=== PATIENT | male | born 1980 | race Hispanic/Latino ===

== ENCOUNTER 2023-02-06 11:38 | Inpatient (IN) | payer BC, MEDICAID ==
[~2023-02-06] VITALS: Ht 180.3 cm; Wt 151.4 kg
[2023-02-06] MEDS ORDERED: VANCOMYCIN 1G/250ML KIT 250 ML IV ONE (12:51)
[2023-02-06 13:00] LABS: BASOPHILS % (AUTO) 0.4 % (0.0-5.0); EOSINOPHILS % (AUTO) 0.8 % (0.0-8.0); HEMATOCRIT 41.6 % (42-54); LYMPHOCYTES % (AUTO) 22.8 % (21.0-51.0); MEAN CORPUSCULAR HEMOGLOBIN 28.9 pg (27.0-33.0); MEAN CORPUSCULAR HGB CONC 33.7 g/dL (32.0-36.0); MONOCYTES % (AUTO) 6.9 % (3.0-13.0); NEUTROPHILS % (AUTO) 68.4 % (40.0-77.0); PLATELET COUNT (AUTO) 242 K/uL (130-400); RED BLOOD CELL COUNT(AUTO) 4.84 MIL/uL (4.50-6.20); RED CELL DISTRIBUTION WIDTH 13.3 % (11.0-15.5); WHITE BLOOD COUNT (AUTO) 12.5 K/uL (4.8-10.8)
[2023-02-06] MEDS ORDERED: MORPHINE 4 MG SYG IVP ONE (13:00)
[2023-02-06] MEDS ORDERED: VANCOMYCIN KIT 1 GM/250 ML IV.KIT IV ONE (13:00)
[2023-02-06] MEDS ORDERED: ONDANSETRON 4MG INJ IVP ONE (13:00)
[2023-02-06 13:24] LABS: ALBUMIN 2.8 g/dL (3.5-5.0); CREATININE 0.9 mg/dL (0.5-1.5); POTASSIUM 3.8 mmol/L (3.5-5.1); TOTAL PROTEIN, SERUM 7.2 g/dL (6.0-8.3)
[2023-02-06] MEDS ORDERED: INSULIN HUMULIN R 100 UNIT/ML 3ML IV ONE (14:30)
[2023-02-06] MEDS ORDERED: 0.9%NACL 1000ML 1,000 ML IV ONE ×2 (14:30→20:30)
[2023-02-06] MEDS ORDERED: IOHEXOL-350 75 ML VIAL IV ONE (14:46)
[2023-02-06] MEDS ORDERED: MORPHINE 2 MG SYG ONE (16:15)
[2023-02-06] MEDS ORDERED: MORPHINE 2 MG SYG IVP ONE (16:30)
[2023-02-06] MEDS: CEFTRIAXONE 2GM VIAL IVPB SCH (17:19)
[2023-02-06] MEDS ORDERED: VANCOMYCIN PROTOCOL PER PHARMACY IV SCH (17:30)
[2023-02-06 17:40] LABS: HEMOGLOBIN A1C 13.8 % (4.0-6.0)
[2023-02-06] MEDS: VANCOMYCIN 1.25 GM/250 ML BAG 250 ML IV SCH (17:42)
[2023-02-06 17:46] LABS: CRP QUANTITATIVE 151.5 mg/L (0.00-9.0); THYROID STIMULATING HORMONE 1.57 uIU/mL (0.36-3.74)
[2023-02-06 18:59] VITALS: BP 119/63
[2023-02-06] MEDS ORDERED: GLIM4TAB36 PO (19:27)
[2023-02-06] MEDS ORDERED: ATOR20TA65 PO (19:27)
[2023-02-06] MEDS ORDERED: LOSA1TAB54 PO (19:27)
[2023-02-06] MEDS ORDERED: METF-446 PO (19:27)
[2023-02-06] MEDS: INSULIN GLARGINE 100 UNITS/ML 10 ML VIAL SQ SCH (20:56)
[2023-02-06] MEDS ORDERED: INSULIN HUMULIN R 100 UNIT/ML 3ML SQ SCH (21:00)
[2023-02-06] MEDS ORDERED: INSULIN HUMULIN R 100 UNIT/ML 3ML SQ ONE (21:30)
[2023-02-06] MEDS ORDERED: HYDROCODONE/ACETAMINOPHEN 5/325 MG TAB PO PRN (23:00)
[2023-02-06] MEDS ORDERED: ACETAMINOPHEN 325 MG TAB PO PRN ×2 (23:00)
[2023-02-06 23:56] VITALS: BP 143/74
[2023-02-06] MEDS: HYDROCODONE/ACETAMINOPHEN 5/325 MG TAB PO PRN (23:56)
[2023-02-07] MEDS: VANCOMYCIN 1.25 GM/250 ML BAG 250 ML IV SCH ×2 (01:43→08:49)
[2023-02-07 04:00] VITALS: BP 138/73
[2023-02-07 04:43] LABS: BASOPHILS % (AUTO) 0.4 % (0.0-5.0); EOSINOPHILS % (AUTO) 1.6 % (0.0-8.0); HEMATOCRIT 41.3 % (42-54); LYMPHOCYTES % (AUTO) 36.1 % (21.0-51.0); MEAN CORPUSCULAR HEMOGLOBIN 28.6 pg (27.0-33.0); MEAN CORPUSCULAR HGB CONC 32.9 g/dL (32.0-36.0); MEAN CORPUSCULAR VOLUME 86.9 fL (79-99); MONOCYTES % (AUTO) 7.1 % (3.0-13.0); NEUTROPHILS % (AUTO) 53.8 % (40.0-77.0); PLATELET COUNT (AUTO) 251 K/uL (130-400); RED BLOOD CELL COUNT(AUTO) 4.75 MIL/uL (4.50-6.20); RED CELL DISTRIBUTION WIDTH 13.4 % (11.0-15.5); WHITE BLOOD COUNT (AUTO) 11.7 K/uL (4.8-10.8)
[2023-02-07 04:56] LABS: INR 0.94 (0.85-1.15); PROTHROMBIN TIME 10.9 SEC (9.6-11.6)
[2023-02-07 04:57] LABS: CREATININE 0.7 mg/dL (0.5-1.5); POTASSIUM 3.7 mmol/L (3.5-5.1)
[2023-02-07 04:58] LABS: PARTIAL THROMBOPLASTIN TIME 31.7 SEC (26.3-35.5)
[2023-02-07] MEDS: HYDROCODONE/ACETAMINOPHEN 5/325 MG TAB PO PRN ×4 (05:51→23:10)
[2023-02-07] MEDS: INSULIN HUMULIN R 100 UNIT/ML 3ML SQ SCH ×6 (06:09→22:10)
[2023-02-07 08:00] VITALS: BP 123/64
[2023-02-07 12:00] VITALS: BP 100/49
[2023-02-07] MEDS ORDERED: ONDANSETRON 4MG INJ IVP PRN (15:30)
[2023-02-07 16:00] VITALS: BP 126/72
[2023-02-07] MEDS: CEFTRIAXONE 2GM VIAL IVPB SCH (17:43)
[2023-02-07] MEDS: VANCOMYCIN 1.5 GM/250 ML BAG 250 ML IV SCH (18:43)
[2023-02-07 20:28] VITALS: BP 139/64
[2023-02-07] MEDS: INSULIN GLARGINE 100 UNITS/ML 10 ML VIAL SQ SCH (22:08)
[2023-02-08] VITALS (7 sets, daily range): BP systolic 138–153; BP diastolic 68–87
[2023-02-08] MEDS: VANCOMYCIN 1.5 GM/250 ML BAG 250 ML IV SCH ×3 (02:23→18:40)
[2023-02-08 04:44] LABS: HEMATOCRIT 40.7 % (42-54); MEAN CORPUSCULAR HEMOGLOBIN 28.7 pg (27.0-33.0); MEAN CORPUSCULAR HGB CONC 31.9 g/dL (32.0-36.0); MEAN CORPUSCULAR VOLUME 89.8 fL (79-99); RED BLOOD CELL COUNT(AUTO) 4.53 MIL/uL (4.50-6.20); RED CELL DISTRIBUTION WIDTH 13.4 % (11.0-15.5); WHITE BLOOD COUNT (AUTO) 8.7 K/uL (4.8-10.8)
[2023-02-08 05:08] LABS: ALBUMIN 2.3 g/dL (3.5-5.0); CREATININE 0.6 mg/dL (0.5-1.5); POTASSIUM 4.1 mmol/L (3.5-5.1); TOTAL PROTEIN, SERUM 6.6 g/dL (6.0-8.3)
[2023-02-08] MEDS: INSULIN HUMULIN R 100 UNIT/ML 3ML SQ SCH ×6 (06:57→20:42)
[2023-02-08] MEDS: LOSARTAN 50 MG TABLET PO SCH (08:38)
[2023-02-08] MEDS: HYDROCODONE/ACETAMINOPHEN 5/325 MG TAB PO PRN (08:39)
[2023-02-08] MEDS ORDERED: INSULIN GLARGINE 100 UNITS/ML 10 ML VIAL SQ SCH (09:00)
[2023-02-08] MEDS: CEFTRIAXONE 2GM VIAL IVPB SCH (16:56)
[2023-02-08] MEDS ORDERED: INSULIN HUMULIN R 100 UNIT/ML 3ML SQ SCH (17:00)
[2023-02-09] MEDS ORDERED: VANCOMYCIN 1.75 GM/250 ML BAG 250 ML IV SCH (02:30)
[2023-02-09 04:00] VITALS: BP 156/87
[2023-02-09 05:40] LABS: BASOPHILS % (AUTO) 0.5 % (0.0-5.0); HEMATOCRIT 38.8 % (42-54); MEAN CORPUSCULAR HEMOGLOBIN 28.6 pg (27.0-33.0); MEAN CORPUSCULAR HGB CONC 32.5 g/dL (32.0-36.0); MEAN CORPUSCULAR VOLUME 88.2 fL (79-99); MONOCYTES % (AUTO) 7.6 % (3.0-13.0); NEUTROPHILS % (AUTO) 44.9 % (40.0-77.0); PLATELET COUNT (AUTO) 248 K/uL (130-400); RED CELL DISTRIBUTION WIDTH 13.3 % (11.0-15.5); WHITE BLOOD COUNT (AUTO) 7.7 K/uL (4.8-10.8)
[2023-02-09 06:05] LABS: ALBUMIN 2.5 g/dL (3.5-5.0); CREATININE 0.7 mg/dL (0.5-1.5); MAGNESIUM 1.8 mg/dL (1.80-2.40); POTASSIUM 3.7 mmol/L (3.5-5.1); TOTAL PROTEIN, SERUM 6.5 g/dL (6.0-8.3)
[2023-02-09] MEDS: INSULIN HUMULIN R 100 UNIT/ML 3ML SQ SCH (06:34)
[2023-02-09] MEDS ORDERED: INSULIN HUMULIN R 100 UNIT/ML 3ML SQ SCH (07:30)
[2023-02-09 08:00] VITALS: BP 145/88
[2023-02-09] MEDS: LOSARTAN 50 MG TABLET PO SCH (08:35)
[2023-02-09] MEDS ORDERED: INSULIN GLARGINE 100 UNITS/ML 10 ML VIAL SQ SCH (09:00)
== END 2023-02-09 11:00 | disposition left against medical advice (07) | DRG 872 ==
LOC: EDH 11:38 → EDHIP 17:01 → 4CH 19:15
PROVIDERS: ADMIT Internal Medicine; ATTEND Internal Medicine
DX: A41.9 Sepsis, unspecified organism (principal); L03.116 Cellulitis of left lower limb; L02.416 Cutaneous abscess of left lower limb; E11.65 Type 2 diabetes mellitus with hyperglycemia; E66.01 Morbid (severe) obesity due to excess calories; Z53.29 Procedure and treatment not carried out because of patient's decision for other reasons; I10 Essential (primary) hypertension; F17.210 Nicotine dependence, cigarettes, uncomplicated; Z79.84 Long term (current) use of oral hypoglycemic drugs; Z82.49 Family history of ischemic heart disease and other diseases of the circulatory system; Z83.3 Family history of diabetes mellitus; Z91.199 Patient's noncompliance with other medical treatment and regimen due to unspecified reason
CPT/HCPCS: 36415; 71045; 72194; 80048; 80053; 80202; 82947; 82948; 83036; 83605; 83735; 84145; 84207; 84443; 85025; 85027; 85610; 85730; 86140; 87040; 87070; 87076; 87077; 87186; 87205; G0378; J0696; J1815; J2270; J2405; J3370; Q9967